=== PATIENT | male | born 1985 | race Caucasian/White ===

== ENCOUNTER 2023-09-02 05:40 | Emergency (ER) | payer SELFPAY ==
[~2023-09-02] VITALS: Ht 182.9 cm; Wt 84.0 kg
[2023-09-02 06:12] VITALS: TEMP 97.7
[2023-09-02 06:13] VITALS: BP 156/82; PULSE 89; RESP 18; O2SAT 98
== END 2023-09-02 08:05 | disposition left against medical advice (07) ==
LOC: ER 05:40 → EDBD 05:40 → ER 08:05
DX: M79.642 Pain in left hand (principal); Z53.21 Procedure and treatment not carried out due to patient leaving prior to being seen by health care provider